=== PATIENT | female | born 2000 | race Caucasian/White ===

== ENCOUNTER 2020-02-13 06:56 | Outpatient (NON) | payer BC, SELFPAY ==
[2020-02-13 18:53] LABS: SARS-CoV-2 RNA PCR Negative
== END 2020-02-13 06:57 | disposition home or self-care (01) ==
PROVIDERS: PCP Family Medicine Adolescent Medicine; Visit Provider Physician Assistant
DX: Z20.828 Contact with and (suspected) exposure to other viral communicable diseases (principal); Z02.0 Encounter for examination for admission to educational institution
CPT/HCPCS: 87635; C9803; U0003